=== PATIENT | female | born 1985 | race Caucasian/White ===

== ENCOUNTER 2020-06-02 08:40 | Outpatient (CLI) | payer OTHER, SELFPAY ==
--- NOTE | ~2020-06-02 | CT_ITS ---
EXAMINATION: CT abdomen wo con DATE: 06/02/2020 09:11 INDICATION: Left upper quadrant abdominal mass. TECHNIQUE: Computed tomography (CT) of the abdomen was performed without intravenous contrast. Automa elie exposure control and iterative reconstruction technique were employed. The dose-length product wa s 1116.27 mGy-cm. COMPARISON: None. FINDINGS: The visualized portions of the lung bases are clear without pneumonia or pleural effusion. The heart size is normal. No pericardial effusion. The liver and gallbladder are normal. There is mil d splenomegaly measuring 15.8 cm. There are changes of gastric bypass. The pancreas, adrenal glands, and kidneys are normal. There are no dilated loops of bowel. There are no pathologically enlarged lym ph nodes. There is no free intraperitoneal fluid. There are multiple old healed left rib fractures. T here is severe lower lumbar spondylosis. IMPRESSION: 1. Mild splenomegaly, which may be secondary to obesity. Reviewed, dictated and finalized at location B.
== END 2020-06-02 08:41 | disposition home or self-care (01) ==
PROVIDERS: PCP Family Medicine; Visit Provider Surgery
DX: R19.02 Left upper quadrant abdominal swelling, mass and lump (principal); R16.1 Splenomegaly, not elsewhere classified
CPT/HCPCS: 74150

== ENCOUNTER 2021-06-04 13:13 | Emergency (ER) | payer OTHER, SELFPAY ==
[2021-06-04 13:14] VITALS: BP 161/83; PULSE 82; RESP 20; TEMP 36.7; O2SAT 100
--- NOTE | 2021-06-04 13:16 | ECG_ITS ---
Measurements Intervals [place] Rate: 87 P: 27 MO: 161 QRS: -3 QRSD: 87 T: 2 QT: 389 QTc: 468 Interpretive Statements SINUS RHYTHM VOLTAGE CRITERIA FOR LVH BORDERLINE T WAVE ABNORMALITY- INFERIOR LEADS BORDERLINE ECG Electronically Signed On 06-04-2021 16:46:14 CDT by Fly Benson D.O.
[2021-06-04 13:44] LABS: Basophils Absolute Auto 0.1 K/mm3 (0.0-0.1); Basophils Percent Auto 0.8 % (0.2-1.2); Eosinophils Absolute Auto 0.1 K/mm3 (0-0.3); Hematocrit 34.7 % (37.0-47.0); Hemoglobin 9.8 g/dL (12.0-15.0); Immature Granulocyte Absolute 0.05 K/mm3 (0.00-0.031); Immature Granulocyte Percent A 0.6 % (0-0.5); Lymphocytes Absolute Auto 0.91 K/mm3 (0.9-3.2); Mean Corpuscular HGB Conc 28.2 g/dl (32-36); Mean Corpuscular Hemoglobin 21.6 pg (26-34); Mean Corpuscular Volume 76.6 fl (80-100); Mean Platelet Volume 9.4 fl (7.4-10.4); Monocytes Absolute Auto 0.7 K/mm3 (0.1-0.6); Monocytes Percent Auto 8.7 % (2.6-8.5); Neutrophils Absolute Auto 6.5 K/mm3 (1.3-6.7); Neutrophils Percent Auto 77.9 % (45.5-73.1); Platelet Count Result 271 k/mm3 (150-375); Red Blood Count 4.53 M/mm3 (4.2-5.4); Red Cell Distribution Width 22.1 % (11.5-14.5); White Blood Count 8.3 K/mm3 (4.5-10.0)
[2021-06-04 13:55] LABS: Anion Gap 11 mmol/L (8-16); Blood Urea Nitrogen 10 mg/dL (7-17); Calcium 9.3 mg/dL (8.4-10.2); Carbon Dioxide 22 mmol/L (22-30); Chloride 105 mmol/L (98-107); Estimated CRCL calculation 144 ml/min; Estimated Glomerular Filt Rate > 60; Glucose 96 mg/dL (65-110); Potassium 3.8 mmol/L (3.4-5.0); Sodium 138 mmol/L (137-145)
[2021-06-04 14:30] LABS: Hypochromasia 2+ (NORMAL); Platelet Estimate Adequate (Adequate)
[2021-06-04 16:42] VITALS: BP 145/85; PULSE 86; RESP 20; TEMP 36.5; O2SAT 100
--- NOTE | 2021-06-04 17:09 | ED.SYNCOPE ---
HPI - Syncope General Chief Complaint: Dizziness Stated Complaint: dizzy Time Seen by Provider: 06/04/21 16:58 History of Present Illness HPI narrative: 35 yo female presnets to the ED c/o dizziness. She reports that she has been feeling dizzy since this morning. Primarily lightheadedness. Got worse as the day went on. While she was in the waiting room here she vomited a few times. She is now feeling better although reports not feeling quite right. She did go for a long bike ride in the heat this weekend. No dark or bloody stools. Related Data Allergies Allergy/AdvReac Type Severity Reaction Status Date / Time pertussis vaccine,adsorbed Allergy Severe Unknown Verified 06/04/21 16:57 Pertussis Vaccines Allergy Unknown Unknown Verified 06/04/21 16:57 Review of Systems Review of Systems: All systems reviewed & are unremarkable except as noted in HPI and below Constitutional: Constitutional: Denies chills and Denies fever(s) Eyes: Eyes: Reports no additional eye complaints Cardiovascular: Cardiovascular: Denies chest pain Respiratory: Respiratory: Denies dyspnea Gastrointestinal: Gastrointestinal: Denies abdominal pain, Denies diarrhea, Reports nausea and Reports vomiting Genitourinary: Genitourinary: Reports no additional female genitourinary complaints Neurologic: Reports dizziness, Denies syncope, Denies numbness and Denies weakness PMFSH Past Medical History Medical History Alopecia BMI 45.0-49.9, adult BMI 50.0-59.9, adult Low serum iron Screening for lipid disorders Sinus congestion Surgical History Surgical History H/O gastric bypass H/O knee surgery History of surgery on arm skin reduction Family History Family History Father Diabetes mellitus Hypertension High cholesterol Thyroid disease Other Family history of atrial fibrillation Family history of coronary artery disease Family history of lung cancer Family history of primary malignant neoplasm of liver Social History Social History Alcohol intake: never Substance use: unknown 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 Exam Const: General: healthy appearing, no acute distress and alert Nutritional Appearance: obese Orientation/consciousness: patient oriented x3 HENMT: Head: normal to inspection Ears: TM's normal bilaterally Neck: Neck: normal visual inspection and no lymphadenopathy Resp: Effort & Inspection: normal respiratory effort Auscultation: clear to auscultation bilaterally, no rales, no rhonchi and no wheezes Cardio: Jugular venous distension: no JVD Rate: regular rate Rhythm: regular rhythm Heart sounds: no murmurs GI: Inspection: non-distended GI Palp: Yes Soft to palpation and No Tenderness to palpation present (GI) Skin: General skin exam: normal color Neuro: General: patient oriented x3 and moves all extremities Speech: normal speech Extrem: General: no edema Psych: Appearance: well kempt Affect: normal affect Course Vital Signs Vital signs: Vital Signs Temperature 36.7 C 06/04/21 13:14 Pulse Rate 82 06/04/21 13:14 Respiratory Rate 20 06/04/21 13:14 Blood Pressure 161/83 H 06/04/21 13:14 Pulse Oximetry 100 06/04/21 13:14 Temperature 36.5 C 06/04/21 16:42 Pulse Rate 86 06/04/21 16:42 Respiratory Rate 20 06/04/21 16:42 Blood Pressure 145/85 H 06/04/21 16:42 Pulse Oximetry 100 06/04/21 16:42 MDM - Syncope Differential Diagnosis Differential diagnosis: Likely vasovagal syncope and dehydration Medical Records Attestation: I reviewed the patient's medical records. Lab Data Attestation: I reviewed the patient's lab results. Result diagrams: 06/04/21 13:28 06/04/21 13:28 Labs: Lab Res
[2021-06-04 17:49] VITALS: BP 147/95; PULSE 78; RESP 16; O2SAT 100
== END 2021-06-04 17:54 | disposition home or self-care (01) ==
LOC: ANHED 17:27
PROVIDERS: Emergency Medicine; Emergency Provider Emergency Medicine; PCP Family Medicine
DX: R55 Syncope and collapse (principal); Z98.84 Bariatric surgery status; R94.31 Abnormal electrocardiogram [ECG] [EKG]
CPT/HCPCS: 36415; 80048; 85025; 93005; 99283